=== PATIENT | female | born 1970 | race Caucasian/White ===

== ENCOUNTER 2018-11-25 04:50 | Emergency (ER) | payer BC ==
[2018-11-25] MEDS ORDERED: Triamcinolone Acetonide 40 MG/ML 1 ML MDV IM ONE (06:19)
--- NOTE | 2018-11-25 06:27 | EDM.PDOC ---
ED HPI GENERAL MEDICAL PROBLEM - General Chief Complaint: Skin Complaint Stated Complaint: RASH Time Seen by Provider: 11/25/18 06:10 Source of Information: Reports: Patient History Limitations: Reports: No Limitations - History of Present Illness INITIAL COMMENTS - FREE TEXT/NARRATIVE: This lady comes in because of a rash on her arms. It's been going on for several days and she was seen in urgent care clinic [address] Correa gave her an injection of Kenalog 40 mg. She said that didn't help any. She said she is worse now and the redness on her arms itches a lot. She denies being in the sun. She doesn't know of anything that might have caused this other than possibly some exposure to the mats at exercise class. She showers multiple times every day and uses soap. She uses facial moisturizers but doesn't use anything with Vaseline to try to replace the oils removed by so frequent showering bilat arms Pain Score (Numeric/FACES): 6 - Related Data Allergies Allergy/AdvReac Type Severity Reaction Status Date / Time Sulfa (Sulfonamide Allergy Hives Verified 11/25/18 05:52 Antibiotics) environmental Allergy Difficulty Uncoded 11/25/18 05:52 Breathing Home Meds: Home Meds Fexofenadine [Samreen] 180 mg PO DAILY 11/25/18 [History] Levothyroxine 75 mcg PO DAILY 11/25/18 [History] Multivitamin [Multivitamins] 1 tab PO DAILY 11/25/18 [History] NK [No Known Home Meds] 11/25/18 [History] Past Medical History [employer] History: Reports: Endocrine/Metabolic History: Reports: Hypothyroidism Oncologic (Cancer) History: Reports: Breast Dermatologic History: Reports: Urticaria - Past Surgical History Female Surgical History: Reports: Breast Biopsy, Other (See Below) Other Female Surgeries/Procedures: breast CA removed Social & Family History - Tobacco Use Smoking Status *Q: Never Smoker - Caffeine Use Caffeine Use: Reports: Coffee - Recreational Drug Use Recreational Drug Use: No ED ROS GENERAL - Review of Systems Review Of Systems: ROS reveals no pertinent complaints other than HPI. ED EXAM, SKIN/RASH Exam: See Below Exam Limited By: No Limitations General Appearance: Alert, WD/WN, Mild Distress Skin: Other (Rash to the dorsum of both forearms is bright red rash. Almost looks like very fine vesicles to the left arm. It is not weeping. Rest of the skin of the arms seems just a little bit dry but not severely so area) Location, Skin: Upper Extremity, Right, Lower Extremity, Left Course - Vital Signs Last Recorded V/S: Last Vital Signs Temp 36.1 C 11/25/18 05:49 Pulse 66 11/25/18 05:49 Resp 18 11/25/18 05:49 BP 132/80 11/25/18 05:49 Pulse Ox 96 11/25/18 05:49 - Orders/Labs/Meds Meds: Medications Discontinued Medications Generic Name Dose Route Start Last Admin Trade Name Baylee PRN Reason Stop Dose Admin Triamcinolone Acetonide 40 mg 11/25/18 06:19 Kenalog-40 IM 11/25/18 06:20 ONETIME ONE - Re-Assessments/Exams Free Text/Narrative Re-Assessment/Exam: 11/25/18 06:26 She received an injection of triamcinolone 40 mg. Departure - Departure Time of Disposition: 06:27 Disposition: Home, Self-Care 01 Condition: Fair Clinical Impression: Contact dermatitis - Discharge Information Referrals: PCP,None [Primary Care Provider] - Additional Instructions: It's unclear if the rash could be due to contact with floor mats or other objects. It could have something to do with frequent showering especially with any kind of soap even a very gentle soap remains well from the skin. You can try replacing this by using either Vaseline or something like Eucerin which contains Vaseline. Use the triamcinolone 0.1% cream apply it 2 or 3 times a day to the affected areas. After applying it then you can rub just a little bit of Vaseline on top of it. Follow-up with your Dr. if you're no better in 2 or 3 days. One of the [id number] nonsedating antihistamines may help with the itching. You could always use Benadryl for this but it makes you sleepy
== END 2018-11-25 06:42 | disposition home or self-care (01) ==
LOC: JP.ED 04:50
DX: L25.9 Unspecified contact dermatitis, unspecified cause (principal); E03.9 Hypothyroidism, unspecified; Z88.2 Allergy status to sulfonamides; Z91.048 Other nonmedicinal substance allergy status; Z79.899 Other long term (current) drug therapy
CPT/HCPCS: 96372; 99282; J3301